=== PATIENT | female | born 1950 | race Caucasian/White ===

== ENCOUNTER 2020-07-01 16:59 | Emergency (ER) | payer OTHER, MEDICAID ==
[~2020-07-01] VITALS: Ht 170.2 cm; Wt 63.5 kg
[2020-07-01 17:01] VITALS: BP 161/102
[2020-07-01] MEDS ORDERED: MORPHINE SULFATE 10 MG/ML INJ 1ML SDV IM ONE (17:30)
[2020-07-01] MEDS ORDERED: ONDANSETRON HCL 4 MG/2 ML VIAL IM ONE (17:30)
== END 2020-07-01 18:00 | disposition home or self-care (01) ==
LOC: EDBD 16:59 → ER 16:59
DX: S52.531A Colles' fracture of right radius, initial encounter for closed fracture (principal); W01.0XXA Fall on same level from slipping, tripping and stumbling without subsequent striking against object, initial encounter; Y93.89 Activity, other specified; Y92.89 Other specified places as the place of occurrence of the external cause; Y99.8 Other external cause status
CPT/HCPCS: 29125; 73110; 99283; J2270

== ENCOUNTER 2020-07-04 13:28 | Emergency (ER) | payer OTHER, MEDICAID ==
[~2020-07-04] VITALS: Ht 165.1 cm; Wt 55.8 kg
[2020-07-04 13:30] VITALS: BP 103/78
== END 2020-07-04 13:49 | disposition left against medical advice (07) ==
LOC: ER 13:28
DX: M79.641 Pain in right hand (principal); Z53.21 Procedure and treatment not carried out due to patient leaving prior to being seen by health care provider